=== PATIENT | female | born 1955 | race Caucasian/White ===

== ENCOUNTER 2023-09-07 12:38 | Outpatient (CLI) | payer MEDICARE, MEDICAID ==
[~2023-09-07] VITALS: Ht 170.2 cm; Wt 127.0 kg
[2023-09-07 13:32] VITALS: PULSE 85; RESP 16; O2SAT 88
[2023-09-07] MEDS: albuterol 2.5 MG/3 ML nebule NEB PRN (13:40)
== END 2023-09-07 23:59 | disposition home or self-care (01) ==
LOC: RT 12:38 → MERGE 13:00 → RT 23:59
PROVIDERS: ATTEND Internal Medicine Pulmonary Disease
DX: J44.9 Chronic obstructive pulmonary disease, unspecified (principal)
CPT/HCPCS: 94060; 94727; 94729; 94760